=== PATIENT | male | born 1955 | race African-American/Black ===

== ENCOUNTER 2024-12-28 14:47 | Emergency (ER) | payer MEDICARE ==
[~2024-12-28] VITALS: Ht 183.5 cm; Wt 68.2 kg
[2024-12-28 14:56] VITALS: TEMP 97.7
[2024-12-28] MEDS: BACITRACIN 0.9 GM PACKET OINTMENT TP ONE (15:44)
[2024-12-28 16:29] LABS: BASOPHILS % (AUTO) 0.5 % (0.0-2.0); EOSINOPHILS % (AUTO) 3.1 % (1.0-6.0); HEMATOCRIT 35.6 % (41-53); HEMOGLOBIN 12.1 g/dL (13.5-17.5); LYMPHOCYTES # (AUTO) 1.2 K/uL (1.0-4.8); LYMPHOCYTES % (AUTO) 27.2 % (22.0-44.0); MEAN CORPUSCULAR VOLUME 91 fL (80-100); MONOCYTES # (AUTO) 0.5 K/uL (0.1-1.0); MONOCYTES % (AUTO) 11.4 % (2.0-9.0); NEUTROPHILS # (AUTO) 2.6 K/uL (1.8-7.7); NEUTROPHILS % (AUTO) 57.8 % (40.0-70.0); PLATELET COUNT (AUTO) 235 K/uL (150-450); RED BLOOD CELL COUNT(AUTO) 3.91 MIL/uL (4.50-5.90); RED CELL DISTRIBUTION WIDTH 15.5 % (11.5-14.5); WHITE BLOOD COUNT (AUTO) 4.4 K/uL (4.5-11.0)
[2024-12-28 16:37] LABS: ANION GAP 9 mmol/L (8-16); CALCIUM, TOTAL 8.1 mg/dL (8.8-10.5); CARBON DIOXIDE 25 mmol/L (22-29); CHLORIDE 98 mmol/L (98-107); GLOMERULAR FILTR. RATE CALC > 60 mL/min (>60); GLUCOSE,RANDOM 97 mg/dL (70-110); POTASSIUM 4.2 mmol/L (3.5-5.1); SODIUM SERUM 132 mmol/L (136-145); UREA NITROGEN, BLOOD 5 mg/dL (7-18)
[2024-12-28 16:46] LABS: TROPONIN I-HIGH SENSITIVITY 5 ng/L (<76)
[2024-12-28 18:00] VITALS: BP 102/57; PULSE 79; RESP 18; O2SAT 97
== END 2024-12-28 18:46 | disposition home or self-care (01) ==
LOC: EMS 14:48
DX: S01.01XA Laceration without foreign body of scalp, initial encounter (principal); J45.909 Unspecified asthma, uncomplicated; K21.9 Gastro-esophageal reflux disease without esophagitis; I10 Essential (primary) hypertension; F10.90 Alcohol use, unspecified, uncomplicated; R51.9 Headache, unspecified; Z88.6 Allergy status to analgesic agent; W01.0XXA Fall on same level from slipping, tripping and stumbling without subsequent striking against object, initial encounter; Y93.89 Activity, other specified; Y92.89 Other specified places as the place of occurrence of the external cause; Y99.9 Unspecified external cause status; Y90.8 Blood alcohol level of 240 mg/100 ml or more
CPT/HCPCS: 99284; 70450; 80048; 84484; 85025; 36415; 93005; G0480